=== PATIENT | female | born 1970 | race Caucasian/White ===

== ENCOUNTER → 2021-02-07 16:48 | Outpatient (CLI) | payer OTHER, SELFPAY ==
--- NOTE | ~2021-02-07 | XR_ITS ---
EXAMINATION: XR knee LT 3V DATE: 02/07/2021 17:58 INDICATION: Left knee pain TECHNIQUE: Weight bearing anteroposterior, sunrise, and flexed lateral views of the left knee were ob tained COMPARISON: None. FINDINGS: Mild lateral patellar subluxation. Alignment is otherwise normal. No fracture. Joint spaces are relat ively preserved. Small marginal osteophytes in all 3 compartments consistent with minimal osteoarthri tis. No joint effusion. Diffuse subcutaneous edema about the distal thigh, knee and proximal calf. IMPRESSION: 1. Minimal tricompartmental osteoarthritis. No left knee joint effusion or acute osseous abnormality. Reviewed, dictated and finalized at location A. IMPRESSION: 1. Minimal tricompartmental osteoarthritis. No left knee joint effusion or acut e osseous abnormality.
--- NOTE | ~2021-02-07 | US_ITS ---
EXAMINATION: US venous doppler [facility] DATE: 02/07/2021 17:04 INDICATION: Left lower limb swelling and pain. TECHNIQUE: Grayscale ultrasound images without and with compression and Doppler ultrasound images of the left lower extremity veins were obtained. COMPARISON: None. FINDINGS: The visualized portions of left common femoral vein, profunda (deep) femoral vein, femoral vein, popl iteal vein, peroneal veins, posterior tibial veins, and greater saphenous vein outflow are patent. IMPRESSION: 1. No deep venous thrombosis. Reviewed, dictated and finalized at location A.
== END ==
PROVIDERS: PCP Family Medicine; Visit Provider Nurse Practitioner Family
DX: M79.89 Other specified soft tissue disorders (principal); L03.90 Cellulitis, unspecified; M25.562 Pain in left knee; M17.12 Unilateral primary osteoarthritis, left knee
CPT/HCPCS: 73562; 93971

== ENCOUNTER → 2023-08-15 09:52 | Outpatient (CLI) | payer OTHER, SELFPAY ==
--- NOTE | ~2023-08-15 | CT_ITS ---
EXAMINATION: CT abdomen w con DATE: 08/15/2023 10:30 INDICATION: Abdominal and pelvic swelling, right flank mass. History of cholecystectomy, hernia repair, gastric sleeve. TECHNIQUE: Computed tomography (CT) of the abdomen and pelvis was performed with 100 CC Omnipaque 350 intravenous contrast. Automated exposure control and iterative reconstruction technique were employe d. Exam dose: 846.82 mGy-cm total exam DLP. COMPARISON: None. FINDINGS: Status post sternotomy and tricuspid valve replacement. Cardiomegaly. No pericardial or ple ural effusion. Status post cholecystectomy. No bile duct or pancreatic duct dilatation. No pancreatic calcification. Calcified hepatic and splenic granulomas. The liver, spleen, pancreas, and adrenal glands and kidneys are otherwise unremarkable with the excep tion of nonobstructing approximately 4.5 mm right renal calculus. No other urinary tract calculus or any hydroureteronephrosis on either side is noted. On the lowermost images there is an up to approximately 4 x 5.3 cm soft tissue structure, possibly th e uterus or uterine fibroid, but no lower CT pelvic images are provided in order to completely evalua te this finding. Normal caliber of the abdominal aorta. No intraperitoneal or retroperitoneal mass lesion or adenopath y or ascites. Postoperative change of the stomach consistent with provided history of gastric sleeve surgery. No ryder wel obstruction or intraperitoneal free air is detected. Normal appendix. Degenerative spurring of the lower thoracic spine. Moderate degenerative disc disease and mild retrol isthesis at L5-S1. No suspicious osteolytic or osteoblastic lesions are noted. IMPRESSION: 4.5 mm nonobstructing right renal calculus Status post cholecystectomy Status post gastric sleeve surgery Normal appendix Cardiomegaly Reviewed, dictated and finalized at Location A. Reviewed, dictated and finalized at location B. 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
[2023-08-15 10:13] LABS: Estimated Glomerular Filt Rate > 60
== END ==
PROVIDERS: PCP Family Medicine; Visit Provider Surgery
DX: N20.0 Calculus of kidney (principal); I51.7 Cardiomegaly; Z98.84 Bariatric surgery status; Z90.49 Acquired absence of other specified parts of digestive tract
CPT/HCPCS: 74160; Q9967

== ENCOUNTER 2023-09-22 08:13 | Outpatient (CLI) | payer OTHER, SELFPAY ==
--- NOTE | ~2023-09-22 | XR_ITS ---
EXAMINATION: XR chest 2V 09/22/2023 08:43 INDICATION: Abdominal and pelvic swelling PROCEDURE: 2 view chest COMPARISON: No prior studies for comparison. FINDINGS: The lungs are clear. The cardiomediastinal silhouette is within normal limits. There are no pleural effusions. There is no pneumothorax suspected. Status post median sternotomy for CABG. T here is calcified granuloma of the right upper thorax. IMPRESSION: 1: NO ACUTE CARDIOPULMONARY DISEASE. Reviewed, dictated and finalized at location A.
== END 2023-09-22 08:14 ==
PROVIDERS: PCP Surgery; Visit Provider Surgery
DX: R19.00 Intra-abdominal and pelvic swelling, mass and lump, unspecified site (principal)
CPT/HCPCS: 71046

== ENCOUNTER 2023-09-22 08:45 | Outpatient (CLI) | payer OTHER, SELFPAY ==
--- NOTE | 2023-09-22 08:53 | ECG_ITS ---
Measurements Intervals [place] Rate: 76 P: VA: 0 QRS: 72 QRSD: 90 T: 128 QT: 403 QTc: 453 Interpretive Statements PROBABLY ATRIAL FIBRILLATION (BASELINE ARTIFACT) INCOMPLETE RIGHT BUNDLE BRANCH BLOCK NONSPECIFIC ST & T-WAVE ABNORMALITY- ANTEROLAT/HIGH LAT LEADS BASELINE ARTIFACT- I, II, III, AVR, AVL, AVF, V1-V6 ABNORMAL ECG NO PREVIOUS ECG AVAILABLE FOR COMPARISON Electronically Signed On 09-22-2023 10:44:36 CDT by Chacorta Goodrich D.O.
== END 2023-09-22 08:46 | disposition home or self-care (01) ==
LOC: ANHCARD 08:49
PROVIDERS: PCP Family Medicine; Visit Provider Surgery
DX: R19.00 Intra-abdominal and pelvic swelling, mass and lump, unspecified site (principal); I45.10 Unspecified right bundle-branch block
CPT/HCPCS: 93005

== ENCOUNTER 2023-10-04 00:20 | Day surgery (SDC) | payer OTHER, SELFPAY ==
[2023-09-25 09:47] VITALS: BMI 61.7
--- NOTE | 2023-09-25 09:57 | PC.NURSE ---
Report to the Outpatient Waiting Room, entrance under the green pavilion located off [facility], at time 1000 on date 10/04/23. Planned Procedure Time: 1200. Time changes happen often and if your time is changed the preop area will call you the afternoon before. - You and your visitor will be asked to self-screen and do not enter if you have any COVID symptoms. - A mask is optional within the hospital at this time. Patients may have clear liquids (water, carbonated beverages, clear teas, apple juice) until 3 hours prior to surgery with a maximum of 20 ounces. - No food from midnight until time of surgery Take the following medications with a SIP of water the morning of surgery: CARVEDILOL, LEXAPRO, LEVOTHYROXINE DO NOT STOP ANY OF YOUR OTHER PRESCRIPTION MEDICATIONS PRIOR TO SURGERY ?EXCEPT THE FOLLOWING Medications to discontinue per physician: VITAMINS/SUPPLEMENTS Date to take last dose: 09/30/23 Please no make-up, nail yi, hairspray, perfume, deodorant, or body powder the day of surgery. No jewelry (including any body piercings) or valuables the day of surgery, leave them at home. Please take a shower or bath the night before, or the morning of, surgery with an antibacterial soap. Wear comfortable, loose fitting clothing. - Jewelry must be removed prior to entering the operating room. Rings and piercings that are not removed may be cut off. - The hospital will not accept responsibility for valuables. - Please leave all valuables, including medications, at home the day of surgery. If you are going home after surgery, a licensed bus driver school must drive you home. - NO public transportation without another adult if you receive anesthesia. - We recommend that an adult stay with you for 24 hours following discharge. - We also recommend that you do not drive, make important decision, drink alcoholic beverages, or take any drugs that were not prescribed by your health care provider for at least 24 hours after your discharge time. Follow any additional instructions given to you from your surgeon. If you or anyone in your household have experienced Covid symptoms in the past week, please notify your surgeon or the nurse liaison at the phone number below for possible testing. Telephone instructions given to PT Chely SALGUERO and asked if any additional questions and then verbalized understanding. Patient advised to call surgeon office or pre surgery nurse liaison [phone] if any additional questions.
--- NOTE | 2023-10-02 18:12 | PM.SD2 ---
Same Day Admit/Disch: HPI History of Present Illness Chief complaint: Right Flank Mass Narrative: Iza Mendez is a 53 year old female who has noticed a subcutaneous mass in the right mid back and flank that has been present for many years. In the last 5 years it has increased in size and now is painful whenever she sits and leans back or lies on that side. She was seen in the office and mass was measured to be 22 x 20 cm. Initially I was concerned this could be a lumbar hernia or soft tissue tumor rather than a lipoma. She had a CT scan with IV contrast which did not show evidence of hernia or a soft tissue malignancy. 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 After thorough discussion, patient is taken to surgery now for excision. [facility] Past Medical History Medical History Blood clot associated with vein wall inflammation Transfusion of blood during current hospitalisation Surgical History Surgical History H/O cardiac radiofrequency ablation H/O gastric sleeve ~2014. Performed laparoscopically Heart valve replaced History of ankle surgery History of cholecystectomy History of heart surgery x2 - most recently in 2016. History of hernia repair Repaired at the time of lap ziggy Family History Family History Father Acute myocardial infarction Heart disease Mother Hypertension Cancer Sibling Breast cancer Grandparent Diabetes mellitus Cerebrovascular accident Cancer Social History Social History Smoking status: Never smoker Alcohol intake: current Alcohol use details: VERY RARE Substance use: never Substance use type: does not use Living arrangements: with family Occupation/Education: occupation Additional occupation/education comments: [employer] Spiritual care concerns: No Same Day Admit/Disch: Med Pre-admit Medications Home Medications Medication Instructions Recorded Confirmed Type amoxicillin 500 mg capsule 500 mg PO .COMPLEX 08/06/23 10/04/23 History aspirin 81 mg capsule 81 mg PO DAILY 08/06/23 10/04/23 History carvedilol 12.5 mg tablet 12.5 mg PO Q12H 08/06/23 10/04/23 History cholecalciferol (vitamin D3) 125 125 mcg PO DAILY 08/06/23 10/04/23 History mcg (5,000 unit) capsule escitalopram oxalate 10 mg tablet 10 mg PO DAILY 08/06/23 10/04/23 History furosemide 40 mg tablet 40 mg PO BID 08/06/23 10/04/23 History levothyroxine 112 mcg capsule 112 mcg PO DAILY 08/06/23 10/04/23 History losartan 100 mg tablet 100 mg PO DAILY 08/06/23 10/04/23 History montelukast 10 mg tablet 10 mg PO DAILY 08/06/23 10/04/23 History multivitamin 1 tablet PO DAILY 08/06/23 10/04/23 History potassium chloride 20 mEq 20 meq PO TID 08/06/23 10/04/23 History tablet,extended release ibuprofen 600 mg tablet 600 mg PO Q6H PRN pain #20 tabs 10/04/23 Rx hydromorphone 2 mg tablet 2 mg PO Q6H PRN pain #10 tabs 10/05/23 Rx (Dilaudid) Review of Systems Review of Systems All systems reviewed & are unremarkable except as noted in HPI and below (HPI) Exam Narrative: Super morbid obesity with BMI 61.8 Const: General: cooperative, comfortable, no acute distress, alert, awake and well groomed Nutritional Appearance: obese Orientation/consciousness: No confusion HENMT: Head: normocephalic and atraumatic Mouth: Yes Normal oral and palatal mucosa present Eyes: Conjunctivae: conjunctivae normal Pupils: Equal, round and reactive pupils present EOM: EOMs intact bilaterally Neck: Neck: normal visual inspection, no lymphadenopathy and nontender Resp: Effort & Inspection: normal respiratory effort Auscultation: clear to auscultation bilaterally Cardio: Rate: regular rate Rhythm: regular rhythm Heart sounds: no gallops, no murmurs and
[2023-10-04] VITALS (9 sets, daily range): BP systolic 123–146; BP diastolic 60–83; PULSE 55–67; RESP 10–20; TEMP 36.3–36.4; O2SAT 91–98
[2023-10-04] MEDS: LACTATED RINGERS 1,000 ML 30 ML IV CONT (10:20)
--- NOTE | 2023-10-04 11:38 | WPDHPUPDATE1 ---
History and Physical Update Update Date/Time: 10/04/23 11:38 History and Physical has been reviewed, including an updated exam of the patient. There are NO changes in the patient's condition. Risks, benefits, and alternatives have been discussed and questions answered. Patient agrees to proceed with procedure.
--- NOTE | 2023-10-04 11:54 | WPDANESEPPF ---
Anes - Initial Pre Proc Eval Procedure: Operation Date: 10/04/23 12:00 Proposed Procedures p Excision Large Subcutaneous Right Back Mass - Roderick Petersen MD Date/Time: 10/04/23 11:54 Surgeon: Roderick Petersen MD Pre Op Diagnosis: Right Flank Mass Patient Data Age: 53 Gender: F Height: 1.63 m Weight: 162.4 kg Last Vital Signs Temp 97.6 F 10/04/23 10:15 Pulse 55 L 10/04/23 10:15 Resp 20 10/04/23 10:15 BP 143/75 H 10/04/23 10:15 Pulse Ox 96 10/04/23 10:15 O2 Del Method Room Air 10/04/23 10:15 Allergies Allergy/AdvReac Type Severity Reaction Status Date / Time oxycodone [From Percocet] Allergy Hives Verified 09/25/23 09:45 tramadol Allergy vomiting Verified 09/25/23 09:45 Home Medications Medication Instructions Recorded Confirmed Type amoxicillin 500 mg capsule 500 mg PO .COMPLEX 08/06/23 10/04/23 History aspirin 81 mg capsule 81 mg PO DAILY 08/06/23 10/04/23 History carvedilol 12.5 mg tablet 12.5 mg PO Q12H 08/06/23 10/04/23 History cholecalciferol (vitamin D3) 125 125 mcg PO DAILY 08/06/23 10/04/23 History mcg (5,000 unit) capsule escitalopram oxalate 10 mg tablet 10 mg PO DAILY 08/06/23 10/04/23 History furosemide 40 mg tablet 40 mg PO BID 08/06/23 10/04/23 History levothyroxine 112 mcg capsule 112 mcg PO DAILY 08/06/23 10/04/23 History losartan 100 mg tablet 100 mg PO DAILY 08/06/23 10/04/23 History montelukast 10 mg tablet 10 mg PO DAILY 08/06/23 10/04/23 History multivitamin 1 tablet PO DAILY 08/06/23 10/04/23 History potassium chloride 20 mEq 20 meq PO TID 08/06/23 10/04/23 History tablet,extended release Patient hx anesthesia problems: none Family hx anesthesia problems: none Results Review: All pre-operative results and documents have been reviewed as part of the pre-operative evaluation. [facility] Past Medical History Medical History Blood clot associated with vein wall inflammation Transfusion of blood during current hospitalisation Surgical History Surgical History H/O cardiac radiofrequency ablation H/O gastric sleeve ~2014. Performed laparoscopically Heart valve replaced History of ankle surgery History of cholecystectomy History of heart surgery x2 - most recently in 2016. 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 Informed Consent: The patient's anesthetic plan and its attendant risks and benefits were discussed with the patient/family/POA. Questions were solicited and answers provided to the satisfaction of the patient/family/POA.
[2023-10-04] MEDS: ceFAZolin 3 GM/D5W 100 ML 100 ML IVPB (12:48)
--- NOTE | 2023-10-04 14:16 | W.PM.PROC2 ---
Procedure Note - Detailed Date of Procedure 10/04/23 Pre-op Diagnosis Right Flank and back Mass Post-op Diagnosis Same Procedure Performed Excision 27 cm intramuscular mass of the left back and flank, no margin, 33 cm layered closure. Surgeon Roderick Petersen MD [employer]sembl[employer] Jovanna Lacey [facility] Anesthesia General Indications Patient has had a large mass on the right flank and back for many years. She noticed that in the last 5 years it has seemed to grow at a higher rate. In the office, the mass measured 22 x 20 x [address] She [address] a [address] scan done preoperatively which suggested this was a large lipoma. The mass is bothersome due to its size and also somewhat painful when she leans back in a chair. She is taken to surgery now for excision Findings The mass was a very large lipoma on inspection. This was suggested on the CT scan. It did, at its deepest aspect, involve the latissimus and serratus muscles of the back. It had to be removed from muscle tissue. The bulk of the mass was in the subcutaneous and skin. At surgery, the mass measured 27 cm long by 14 cm wide by 14 cm deep. A large ellipse was used to excise the mass with some overlying skin. The resulting ellipse was 33 cm in length and was closed in 3 layers. Description of Procedure Patient was checked in the preoperative holding area. I had her lay on her left side and marked the anticipated ellipse to excise the mass. She was then taken to surgery. She was induced into general anesthesia. She was then placed in left lateral decubitus position slightly beyond 90?. We had to use two surgical beds because she is a very large lady with BMI of 61.5. Once she was positioned adequately the right back and chest were prepped and draped. The anticipated elliptical incision was created in a transverse orientation. Cautery was used for hemostasis. We dissected through the subcutaneous and then easily found the encapsulated mass. The entire ellipse of skin and subcutaneous overlying the mass were divided so that we were down to the large mass on both the cephalad and caudad sides. I then used retractors and cautery and dissected the mass from the remaining subcutaneous on the cephalad side. The same was then done on the caudal side. Once this was completed, I was able to elevate the mass anteriorly and then began dissection of the posterior aspect. As we approached the center of the mass, it was involved in the musculature of the right lateral back as mentioned above. Some muscle had to be removed with the mass as it was intertwined but this was only a small amount. Muscular fascia was removed as well. Eventually we went beyond this muscular attachment and then continued excising the mass from the remaining subcutaneous. Cautery was used for hemostasis throughout. Eventually it was completely removed. I then measured the size of the mass with dimensions as noted above. I also measured the length of the resulting wound. This was 33 cm in length as mentioned above. Cautery was used to achieve good hemostasis throughout the wound. The deep subcutaneous fascia was then closed with interrupted 3-0 Vicryl suture. We then placed some superficial 3-0 Vicryl suture and some subcuticular interrupted 3-0 Vicryl suture. The skin closure was then further completed with subcuticular interrupted 4-0 Vicryl suture. Finally the wound was closed with running 4-0 Monocryl skin suture. Both the cephalad and caudad flaps seemed to be very well vascularized. The wound was dressed with Exofin surgical adhesive. The patient was then returned to a supine position, awakened and extubated. She was taken to recovery in good condition. Estimated Blood Loss -50 Drains No Packing No Pathology Yes (Large intramuscular mass right flank and back) Complications No immediate complications Condition Stable Disposition PACU [facility] Billing Surgery - Charge Forward: Surgery Billing (Excision 27 cm intramuscular mass of the
[2023-10-04] MEDS: fentaNYL CITRATE INJ (*CRX) 100 MCG/2 ML VIAL 25 MCG IV PUSH (14:54)
[2023-10-04] MEDS: KETOROLAC 15 MG/ML VIAL (*BKC) IV PUSH (15:23)
== END 2023-10-04 16:20 | disposition home or self-care (01) ==
PROVIDERS: PCP Family Medicine; Visit Provider Surgery
PROC: (CPT 21933; principal; 2023-10-04 12:00)
DX: D17.1 Benign lipomatous neoplasm of skin and subcutaneous tissue of trunk (principal); E66.01 Morbid (severe) obesity due to excess calories; Z68.44 Body mass index [BMI] 60.0-69.9, adult; Z79.82 Long term (current) use of aspirin; Z98.890 Other specified postprocedural states; Z98.84 Bariatric surgery status; Z90.49 Acquired absence of other specified parts of digestive tract; Z86.79 Personal history of other diseases of the circulatory system; Z80.3 Family history of malignant neoplasm of breast; Z82.49 Family history of ischemic heart disease and other diseases of the circulatory system
CPT/HCPCS: 21933; 88304; J0330; J0690; J1100; J1885; J2405; J2704; J3010; J7120